=== PATIENT | female | born 1990 | race African-American/Black ===

== ENCOUNTER 2021-03-19 13:26 | Emergency (ER) | payer MEDICAID ==
[~2021-03-19] VITALS: Ht 175.3 cm; Wt 93.0 kg
[2021-03-19] MEDS ORDERED: SODIUM CHLORIDE 0.9% 1,000 ML IV ONE (14:00)
[2021-03-19 14:41] LABS: EOSINOPHILS % 0.3 % (0.0-5.0); HEMATOCRIT. 42.1 % (36.0-48.0); HEMOGLOBIN. 13.7 g/dL (12.0-16.0); MEAN CORPUSCULAR HEMOGLOBIN 27.1 pg (28.0-32.0); MEAN CORPUSCULAR VOLUME 83.5 fL (81.0-99.0); MEAN PLATELET VOLUME 7.3 fl (7.4-10.4); MONOCYTES % 7.2 % (2.0-8.0); NEUTROPHILS % 61.5 % (40.0-76.0); PLATELET 419 x1000/uL (130-400); RED BLOOD CELL COUNT 5.04 mill/uL (4.2-5.4)
[2021-03-19 14:48] LABS: CHLORIDE 109 mEq/L (98-107)
[2021-03-19 14:51] LABS: HCG SCREEN NEGATIVE
[2021-03-19 15:04] LABS: ETHANOL BLOOD 401 mg/dL
[2021-03-19 16:00] VITALS: BP 160/92
== END 2021-03-19 17:30 | disposition home or self-care (01) ==
LOC: ER 13:26
DX: F10.129 Alcohol abuse with intoxication, unspecified (principal); Y90.8 Blood alcohol level of 240 mg/100 ml or more
CPT/HCPCS: 36415; 70450; 80053; 80320; 82962; 84703; 85025; 96360; 99284; J7030; G0480